=== PATIENT | female | born 1970 | race Caucasian/White ===

== ENCOUNTER 2018-02-13 14:50 | Inpatient (IN) | payer OTHER ==
[~2018-02-13] VITALS: Ht 149.9 cm; Wt 82.1 kg
[2018-02-13 15:20] VITALS: BP 160/86
[2018-02-13] MEDS ORDERED: LORazepam 2 MG/ML VIAL IVP ONE (15:55)
[2018-02-13] MEDS ORDERED: MECLIZINE 25 MG TAB PO ONE (15:55)
[2018-02-13] MEDS ORDERED: NACL 0.9% 1,000 ML IV ONE (15:55)
[2018-02-13 16:10] LABS: BASOPHILS % (AUTO) 0.4 % (0.0-2.0); EOSINOPHILS % (AUTO) 0.4 % (0.0-4.0); HEMATOCRIT 37.6 % (36-48); HEMOGLOBIN 12.3 g/dL (12.0-16.0); LYMPHOCYTES # (AUTO) 0.7 K/uL (2.5-16.5); LYMPHOCYTES % (AUTO) 7.5 % (20.5-51.1); MEAN CORPUSCULAR HEMOGLOBIN 26 pg (27-31); MEAN CORPUSCULAR HGB CONC 33 g/dL (33-37); MEAN CORPUSCULAR VOLUME 80.4 fL (80-94); MONOCYTES # (AUTO) 0.5 K/uL (0.8-1.0); MONOCYTES % (AUTO) 4.9 % (1.7-9.3); NEUTROPHILS # (AUTO) 8.2 K/uL (1.8-7.7); NEUTROPHILS % (AUTO) 86.8 % (42.2-75.2); PLATELET COUNT (AUTO) 170 K/uL (140-450); RED BLOOD CELL COUNT(AUTO) 4.68 MIL/uL (4.20-5.40); RED CELL DISTRIBUTION WIDTH 14.7 % (11.6-13.7); WHITE BLOOD COUNT (AUTO) 9.5 K/uL (4.8-10.8)
--- NOTE | 2018-02-13 16:20 | NUR ---
BIB FAMILY WITH C/O SOB D/T DUST X 1 HOUR. SPOW 96% ON ROOM AIR. VSS; PATIENT POSITIONED FOR COMFORT; HOB ELEVATED; BEDRAILS UP X2; BED DOWN. ER MD MADE AWARE OF PT STATUS.
[2018-02-13 16:27] LABS: ALBUMIN 3.8 g/dL (3.4-5.0); ANION GAP 14.2 (8-16); CARBON DIOXIDE 26.3 mmol/L (21-32); CREATININE 0.7 mg/dL (0.6-1.3); POTASSIUM 3.5 mmol/L (3.5-5.1); TOTAL BILIRUBIN 0.2 mg/dL (0.0-1.0)
--- NOTE | 2018-02-13 18:26 | NUR ---
PT TAKEN TO CT VIA [facility]
--- NOTE | 2018-02-13 18:37 | NUR ---
PT BACK FROM CT
--- NOTE | 2018-02-13 19:15 | NUR ---
RECEIVED REPORT FROM LEA RODRIGUEZ. PT RESTING IN BED. VSS.
[2018-02-13] MEDS ORDERED: ZOLPIDEM 5 MG TAB PO PRN (20:25)
[2018-02-13] MEDS ORDERED: DOCUSATE SODIUM 100 MG GELCAP PO PRN (20:25)
[2018-02-13] MEDS ORDERED: ONDANSETRON 4 MG/2 ML VIAL IM/IVP PRN (20:25)
[2018-02-13] MEDS ORDERED: HYDROcodone/APAP 5/325 MG 1 TAB TAB PO PRN (20:25)
[2018-02-13] MEDS ORDERED: LORazepam 2 MG/ML VIAL IM/IVP PRN (20:25)
--- NOTE | 2018-02-13 20:53 | NUR ---
REPORT GIVEN TO ISAMAR TATE AND PT TAKEN TO ROOM 112-B VIA [facility]. S.
--- NOTE | 2018-02-13 20:53 | NUR ---
ADMITTED PT FROM ER VIA [facility]. AAOX4. NO C/O PAIN OR SOB. ON ROOM AIR. SKIN INTACT. PER PT, SHE FEELS DIZZY BUT REFUSED MEDS FOR DIZZINESS AT THIS TIME. IV TO LEFT HAND #22G, PATENT AND INTACT. ORIENTED PT TO ROOM. DISCUSSED PLAN OF CARE, PT VERBALIZED UNDERSTANDING. SAFETY PRECAUTION IN PLACE. CALL LIGHT WITHIN REACH.
[2018-02-13 20:55] VITALS: BP 144/83
[2018-02-13 21:04] LABS: PROTHROMBIN TIME 9.2 secs (10.8-13.4)
[2018-02-13 21:12] LABS: CHOL/HDL RATIO 5.2 (1-4.5); FREE T4 (FREE THYROXINE) 0.95 ng/dL (0.76-1.46); PHOSPHORUS 3.8 mg/dL (2.5-4.9); THYROID STIMULATING HORMONE 0.12 uIU/mL (0.34-3.74)
[2018-02-13] MEDS: NACL 0.9% 1,000 ML IV SCH (21:15)
[2018-02-13 21:21] LABS: MAGNESIUM 1.7 mg/dL (1.8-2.4)
--- NOTE | 2018-02-13 23:30 | NUR ---
ASSISTED PT TO BATHROOM AND BACK TO BED. NO C/O PAIN OR SOB.
[2018-02-14] VITALS: BP 144/77
[2018-02-14] MEDS ORDERED: MECLIZINE 25 MG TAB PO PRN (02:00)
--- NOTE | 2018-02-14 02:00 | NUR ---
PT SLEEPING BUT EASILY AROUSABLE. RESP EVEN AND UNLABORED. NO S/S OF PAIN. CALL LIGHT WITHIN REACH.
[2018-02-14] MEDS ORDERED: METF500T PO (03:26)
[2018-02-14] MEDS ORDERED: LOSA25TA43 PO (03:26)
[2018-02-14] MEDS ORDERED: DEXTROSE 50% 50 ML SYR IVP PRN (03:30)
[2018-02-14] MEDS ORDERED: INSULIN LISPRO SLIDING SCALE 100 UNITS/ML VIAL SUBQ PRN (03:30)
--- NOTE | 2018-02-14 03:46 | NUR ---
MAG-OX 800 MG PO GIVEN. PT TOLERATED WELL.
[2018-02-14] MEDS ORDERED: MAGNESIUM OXIDE 400 MG TAB PO SCH (04:00)
[2018-02-14] MEDS: NACL 0.9% 1,000 ML IV SCH ×3 (04:44→20:50)
--- NOTE | 2018-02-14 05:45 | NUR ---
PT AWAKE. PT REFUSED ORTHOSTATIC VS AT THIS TIME. PER PT, SHE STILL FEELS DIZZY. PT REFUSED MEDS FOR DIZZINESS.
--- NOTE | 2018-02-14 06:30 | NUR ---
BLOOD SUGAR CHECKED 107. NO INSULIN COVERAGE.
[2018-02-14 07:26] LABS: BASOPHILS # (AUTO) 0.1 K/uL (0.00-0.22); BASOPHILS % (AUTO) 0.7 % (0.0-2.0); EOSINOPHILS # (AUTO) 0.1 K/uL (0-0.4); EOSINOPHILS % (AUTO) 0.9 % (0.0-4.0); HEMATOCRIT 36.7 % (36-48); HEMOGLOBIN 12.1 g/dL (12.0-16.0); LYMPHOCYTES # (AUTO) 1.5 K/uL (2.5-16.5); LYMPHOCYTES % (AUTO) 18.6 % (20.5-51.1); MEAN CORPUSCULAR HEMOGLOBIN 27 pg (27-31); MEAN CORPUSCULAR HGB CONC 33 g/dL (33-37); MEAN CORPUSCULAR VOLUME 80.4 fL (80-94); MONOCYTES # (AUTO) 0.6 K/uL (0.8-1.0); MONOCYTES % (AUTO) 7.1 % (1.7-9.3); NEUTROPHILS # (AUTO) 5.9 K/uL (1.8-7.7); NEUTROPHILS % (AUTO) 72.7 % (42.2-75.2); PLATELET COUNT (AUTO) 171 K/uL (140-450); RED BLOOD CELL COUNT(AUTO) 4.56 MIL/uL (4.20-5.40); RED CELL DISTRIBUTION WIDTH 14.8 % (11.6-13.7); WHITE BLOOD COUNT (AUTO) 8.1 K/uL (4.8-10.8)
[2018-02-14] MEDS: BLOOD GLUCOSE MONITORING 1 DEV DEV FS SCH ×4 (07:28→20:47)
--- NOTE | 2018-02-14 07:32 | NUR ---
ENDORSED PT TO DAY SHIFT NURSE. PT IN STABLE CONDITION.
--- NOTE | 2018-02-14 07:34 | NUR ---
RECEIVED REPORT AT BEDSIDE. PT IS AAOX4. NO C/O PAIN OR SOB. ON ROOM AIR. SKIN INTACT. PER PT, SHE FEELS DIZZY BUT REFUSED MEDS FOR DIZZINESS AT THIS TIME. IV TO LEFT HAND #22G, PATENT AND INTACT. DISCUSSED PLAN OF CARE, PT VERBALIZED UNDERSTANDING. SAFETY PRECAUTION IN PLACE. CALL LIGHT WITHIN REACH. WILL ROUND FREQUENTLY.
[2018-02-14 08:00] VITALS: BP 159/85
[2018-02-14 08:33] LABS: ANION GAP 14.9 (8-16); CARBON DIOXIDE 26.7 mmol/L (21-32); CREATININE 0.6 mg/dL (0.6-1.3); POTASSIUM 3.6 mmol/L (3.5-5.1)
[2018-02-14 08:39] LABS: MAGNESIUM 2.1 mg/dL (1.8-2.4); PHOSPHORUS 3.8 mg/dL (2.5-4.9)
--- NOTE | 2018-02-14 08:42 | NUR ---
PATIENT HAS BEEN SCREENED AND CATEGORIZED MODERATE NUTRITION RISK. PATIENT WILL BE SEEN WITHIN 3-5 DAYS OF ADMISSION. 02/16/18 02/18/[address]
[2018-02-14] MEDS: metFORMIN 500 MG TAB PO SCH ×2 (10:15→20:47)
[2018-02-14] MEDS: ATORVASTATIN 20 MG TAB PO SCH (10:15)
[2018-02-14] MEDS: ACETAMINOPHEN 325 MG TAB PO PRN ×2 (10:16→15:42)
--- NOTE | 2018-02-14 10:16 | NUR ---
PT RESTING IN BED. FAMILY AT BEDSIDE. NO COMPLAINTS OF PAIN AT THIS TIME. WILL ROUND FREQUENTLY. CALL LIGHT WITHIN REACH, BED IN LOW POSITION.
[2018-02-14] MEDS ORDERED: LOSARTAN 25 MG TAB PO SCH ×2 (11:14→16:45)
--- NOTE | 2018-02-14 12:35 | NUR ---
CHART REVIEW DONE.
--- NOTE | 2018-02-14 12:58 | NUR ---
PT AMBULATED TO RESTROOM WITH MINIMAL ASSISTANCE. PT TOLERATED WELL. NO SIGNS OF DISTRESS OR SOB NOTED. FAMILY MEMBERS AT BEDSIDE WITH PT. WILL CONTINUE TO MONITOR CLOSELY.
--- NOTE | 2018-02-14 15:47 | NUR ---
PT AMBULATED DEAL WITH FAMILY. STATED SHE FELT A LITTLE DIZZY SO SHE WENT BACK TO ROOM. GAVE MEDICATION FOR DIZZINESS. WILL REASSESS FOR MED EFFECTIVENESS
[2018-02-14 16:00] VITALS: BP 149/79
[2018-02-14] MEDS ORDERED: LISINOPRIL 5 MG TAB PO SCH (16:40)
[2018-02-14] MEDS: MECLIZINE 25 MG TAB PO SCH (18:00)
--- NOTE | 2018-02-14 19:30 | NUR ---
ASSUMED CARE OF PATIENT, AWAKE, ALERT AND ORIENTED. FAMILY AT BEDSIDE. CARE BOARD UPDATED. PLAN OF CARE DISCUSSED WITH PATIENT AND FAMILY MEMBER, VERBALIZED UNDERSTANDING WELL. CALL LIGHT WITHIN REACH.
--- NOTE | 2018-02-14 19:36 | NUR ---
ENDORSED PT TO [employer] P[employer] ADJUSTER FOR CONTINUITY OF CARE. PT INSTABLE CONDITION AT THIS TIME.
--- NOTE | 2018-02-14 21:00 | NUR ---
HS SNACK GIVEN. DUE MEDS GIVEN. NO COMPLAINS. CALL LIGHT WITHIN REACH.
--- NOTE | 2018-02-15 | NUR ---
ASLEEP EASILY AROUSABLE. NO COMPLAINS. CALL LIGHT WITHIN REACH. VITALS SIGNS STABLE. DUE MEDS GIVEN.
[2018-02-15] MEDS: MECLIZINE 25 MG TAB PO SCH ×3 (00:11→12:16)
[2018-02-15 00:20] VITALS: BP 144/85
[2018-02-15] MEDS: NACL 0.9% 1,000 ML IV SCH ×2 (02:55→14:33)
--- NOTE | 2018-02-15 04:00 | NUR ---
ASLEEP, NO COMPLAINS. VITAL SIGNS STABLE. CALL LIGHT WITHIN REACH.
[2018-02-15] MEDS: BLOOD GLUCOSE MONITORING 1 DEV DEV FS SCH ×2 (05:45→12:16)
--- NOTE | 2018-02-15 07:17 | NUR ---
ENDORSED CARE AT BEDSIDE WITH LAISHA TATE, PATIENT IN STABLE CONDITION.
--- NOTE | 2018-02-15 07:19 | NUR ---
RECEIVED REPORT AT BEDSIDE. PT IS RESTING IN BED. REINTRODUCED SELF TO PT. NO SIGNS OF DISTRESS NOTED. PT IS AAOX4. NO C/O PAIN OR SOB. ON ROOM AIR. SKIN INTACT. PER PT, SHE FEELS DIZZY BUT REFUSED MEDS FOR DIZZINESS AT THIS TIME. IV TO LEFT HAND #22G, PATENT AND INTACT. DISCUSSED PLAN OF CARE, PT VERBALIZED UNDERSTANDING. SAFETY PRECAUTION IN PLACE. CALL LIGHT WITHIN REACH. WILL ROUND FREQUENTLY.
[2018-02-15 08:00] VITALS: BP 144/72
[2018-02-15 08:38] LABS: BARBITURATE, URINE NEGATIVE ng/ml (NEG <=200); BENZODIAZEPINE, URINE NEGATIVE ng/mL (NEG <=200); CANNABINOID, URINE POSITIVE ng/mL (NEG <=50); COCAINE, URINE NEGATIVE ng/mL (NEG <=300); OPIATE, URINE NEGATIVE ng/mL (NEG <=2000); PHENCYCLIDINE SCREEN,URINE NEGATIVE ng/mL (NEG <=25)
[2018-02-15] MEDS ORDERED: LOSARTAN 25 MG TAB PO SCH ×2 (09:00)
[2018-02-15] MEDS: ATORVASTATIN 20 MG TAB PO SCH (09:13)
[2018-02-15] MEDS: metFORMIN 500 MG TAB PO SCH (09:14)
[2018-02-15] MEDS ORDERED: MECL-272 PO (10:44)
--- NOTE | 2018-02-15 11:05 | NUR ---
CHART REVIEW DONE.
[2018-02-15] MEDS: ACETAMINOPHEN 325 MG TAB PO PRN (12:16)
--- NOTE | 2018-02-15 12:49 | NUR ---
RECEIVED ORDER FOR HOME HEALTH FOR P.T. I CALLED KADIE AT [facility], AND SHE SAID TO CONTACT [facility], . I CALLED [facility] AND SPOKE WITH YAIR AND GAVE HER THE INFORMATION AND FAXED THE FACE SHEET, ORDER AND PT NOTES TO HER AT [phone]. YAIR FROM [facility] SAID THAT THEY WILL ARRANGE THE HOME HEALTH AND WILL CALL THE PATIENT ABOUT WHO WILL BE SEEING THE PATIENT. THE INTAKE ID NUMBER IS [id number].
--- NOTE | 2018-02-15 16:17 | NUR ---
PT DISCHARGED HOME WITH HOME HEALTH FOR PHYSICAL THERAPY. PT PT SIGNED DISCHARGE PAPERWORK. DISCHARGE EDUCATION GIVEN TO PT. PRESCRIPTION ALSO INCLUDED IN DISCHARGE FOLDER. REMOVED IV, WITH TIP INTACT. CUT WRISTBANDS OFF PT. ALL BELONGINGS TAKEN WITH HER. PT LEFT IN STABLE CONDITION, VERBALIZED UNDERSTANDING OF DISCHARGE TEACHING ON MEDICATION AND VERTIGO. ALSO VERBALIZED UNDERSTANDING ON MEDICATION REGIMEN. PT WHEELED OUT TO 'S CAR.
== END 2018-02-15 16:15 | disposition home or self-care (01) | DRG 74 ==
LOC: MED 14:50 → MTU 20:40
PROVIDERS: ADMIT General Practice; ATTEND General Practice
DX: G90.8 Other disorders of autonomic nervous system (principal); D68.59 Other primary thrombophilia; I10 Essential (primary) hypertension; E78.5 Hyperlipidemia, unspecified; E83.42 Hypomagnesemia; E02 Subclinical iodine-deficiency hypothyroidism; E11.69 Type 2 diabetes mellitus with other specified complication; Z90.49 Acquired absence of other specified parts of digestive tract; Z98.51 Tubal ligation status; Z79.84 Long term (current) use of oral hypoglycemic drugs; Z79.899 Other long term (current) drug therapy
CPT/HCPCS: 36415; 70450; 71045; 80048; 80053; 80305; 82150; 82948; 83036; 83690; 83735; 83880; 84100; 84439; 84443; 84484; 85025; 85610; 85730; 87081; 93005; 93880; 96374; 97535; 99285; J1815; J2060; J7030; J8597; Q0092